=== PATIENT | male | born 1945 | race Caucasian/White ===

== ENCOUNTER 2020-05-17 07:45 | Outpatient (CLI) | payer MEDICARE, SELFPAY ==
[2020-05-17 08:35] LABS: Alanine Aminotransferase 23 U/L (4-50); Albumin Level 3.9 g/dL (3.5-5.1); Alkaline Phosphatase 74 U/L (38-126); Anion Gap 11.3 mmol/L (7-16); Aspartate Amino Transferase 28 U/L (17-59); Bilirubin,Total 0.6 mg/dL (0.2-1.3); Blood Urea Nitrogen 17 mg/dL (9-20); Calcium 8.9 mg/dL (8.4-10.2); Carbon Dioxide 23 mmol/L (22-30); Chloride 106 mmol/L (98-107); Cholesterol 184 mg/dL (0-200); Estimated Glomerular Filt Rate > 60; Glucose 101 mg/dL (75-110); HDL Direct 39 mg/dL; Potassium 4.3 mmol/L (3.4-5.0); Sodium 136 mmol/L (137-145); Triglycerides 100 mg/dL (<150)
[2020-05-17 08:46] LABS: LDL Cholesterol Direct 117 mg/dL
[2020-05-17 09:06] LABS: Prostate Specific Antigen 1.1 ng/mL (< OR = 4.0)
== END 2020-05-17 07:46 | disposition home or self-care (01) ==
PROVIDERS: PCP Internal Medicine; Visit Provider Internal Medicine
DX: E78.2 Mixed hyperlipidemia (principal); I10 Essential (primary) hypertension; E03.9 Hypothyroidism, unspecified; Z12.5 Encounter for screening for malignant neoplasm of prostate; Z79.899 Other long term (current) drug therapy
CPT/HCPCS: 36415; 80053; 80061; 84153; 84443; G0103

== ENCOUNTER 2021-02-10 07:53 | Outpatient (CLI) | payer MEDICARE, SELFPAY ==
[2021-02-10 12:22] LABS: Hematocrit 32.4 % (42.0-52.0); Hemoglobin 9.4 g/dL (14.0-18.0)
[2021-02-10 12:39] LABS: Alanine Aminotransferase 21 U/L (4-50); Albumin Level 3.8 g/dL (3.5-5.1); Alkaline Phosphatase 97 U/L (38-126); Anion Gap 5 mmol/L (8-16); Aspartate Amino Transferase 29 U/L (17-59); Bilirubin,Total 0.4 mg/dL (0.2-1.3); Blood Urea Nitrogen 15 mg/dL (9-20); Calcium 9.1 mg/dL (8.4-10.2); Carbon Dioxide 26 mmol/L (22-30); Chloride 106 mmol/L (98-107); Cholesterol 158 mg/dL (0-200); Estimated Glomerular Filt Rate > 60; Glucose 100 mg/dL (75-110); HDL Direct 40 mg/dL; Potassium 4.4 mmol/L (3.4-5.0); Sodium 137 mmol/L (137-145); Triglycerides 94 mg/dL (<150)
[2021-02-10 12:49] LABS: LDL Cholesterol Direct 101 mg/dL
== END 2021-02-10 07:54 | disposition home or self-care (01) ==
PROVIDERS: PCP Internal Medicine; Visit Provider Internal Medicine
DX: E78.2 Mixed hyperlipidemia (principal); I10 Essential (primary) hypertension; Z12.5 Encounter for screening for malignant neoplasm of prostate; E03.9 Hypothyroidism, unspecified; D64.9 Anemia, unspecified
CPT/HCPCS: 36415; 80053; 80061; 84153; 84443; 85014; 85018; G0103

== ENCOUNTER 2021-02-11 08:36 | Outpatient (CLI) | payer MEDICARE, SELFPAY ==
[2021-02-11 12:31] LABS: Iron 19 ug/dL (49-181)
[2021-02-11 12:41] LABS: Percent Iron Saturation 5 % (20-50)
[2021-02-11 13:09] LABS: Ferritin 6.69 ng/mL (11.1-264)
[2021-02-11 20:01] LABS: Folic Acid > 20.0 ng/mL (2.76->20)
== END 2021-02-11 08:37 | disposition home or self-care (01) ==
PROVIDERS: PCP Internal Medicine; Visit Provider Nurse Practitioner
DX: D64.9 Anemia, unspecified (principal)
CPT/HCPCS: 36415; 82607; 82728; 82746; 83540; 83550

== ENCOUNTER 2021-08-12 08:16 | Outpatient (CLI) | payer MEDICARE, SELFPAY ==
[2021-08-12 08:33] LABS: Hematocrit 45.7 % (42.0-52.0); Hemoglobin 15.9 g/dL (14.0-18.0); Mean Corpuscular HGB Conc 34.8 g/dl (32-36); Mean Corpuscular Hemoglobin 33.7 pg (26-34); Mean Corpuscular Volume 96.8 fl (80-100); Platelet Count Result 209 k/mm3 (150-375); Red Blood Count 4.72 M/mm3 (4.6-6.20); Red Cell Distribution Width 12.9 % (11.5-14.5); White Blood Count 5.9 K/mm3 (4.5-10.0)
[2021-08-12 08:50] LABS: Alanine Aminotransferase 34 U/L (4-50); Alkaline Phosphatase 85 U/L (38-126); Anion Gap 7 mmol/L (8-16); Aspartate Amino Transferase 31 U/L (17-59); Bilirubin,Total 0.5 mg/dL (0.2-1.3); Blood Urea Nitrogen 16 mg/dL (9-20); Calcium 9.3 mg/dL (8.4-10.2); Carbon Dioxide 26 mmol/L (22-30); Chloride 105 mmol/L (98-107); Cholesterol 168 mg/dL (0-200); Estimated Glomerular Filt Rate > 60; Glucose 104 mg/dL (65-110); HDL Direct 38 mg/dL; Potassium 4.6 mmol/L (3.4-5.0); Sodium 138 mmol/L (137-145); Triglycerides 84 mg/dL (<150)
[2021-08-12 09:01] LABS: LDL Cholesterol Direct 102 mg/dL
[2021-08-12 09:03] LABS: Iron 72 ug/dL (49-181)
[2021-08-12 09:12] LABS: Percent Iron Saturation 23 % (20-50)
== END 2021-08-12 08:17 | disposition home or self-care (01) ==
PROVIDERS: PCP Internal Medicine; Visit Provider Nurse Practitioner
DX: D50.9 Iron deficiency anemia, unspecified (principal); E78.5 Hyperlipidemia, unspecified
CPT/HCPCS: 36415; 80053; 80061; 83540; 83550; 85027

== ENCOUNTER 2021-09-22 19:40 | Inpatient (IN) | payer MEDICARE, SELFPAY ==
[2021-09-22] VITALS (9 sets, daily range): BP systolic 109–151; BP diastolic 63–95; PULSE 88–152; RESP 16–100; TEMP 36.7; O2SAT 13–100
--- NOTE | ~2021-09-22 | XR_ITS ---
EXAMINATION: XR chest 1V portable EXAM DATE: 09/22/2021 20:20 INDICATION: Palpitations/ in a-fib today hx cardiac stents , HTN. TECHNIQUE: Portable AP frontal chest x-ray was obtained. Comparison is made to prior examination from 2007. FINDINGS: Linear left basilar subsegmental atelectasis. The lungs are otherwise clear. There are no pleural effusions. The cardiomediastinal silhouette is within normal limits. There is no pneumothor ax suspected. The bones and soft tissues are unremarkable. There is moderate sliding gastroesophage al hiatal hernia. IMPRESSION: Linear left basilar subsegmental atelectasis. Reviewed, dictated and finalized at location A. HOE OPERATOR
--- NOTE | 2021-09-22 19:51 | ECG_ITS ---
Measurements Intervals [place] Rate: 138 P: HI: 0 QRS: -5 QRSD: 107 T: -1 QT: 278 QTc: 421 Interpretive Statements ATRIAL FLUTTER/TACHYCARDIA WITH RAPID VENTRICULAR RESPONSE INCOMPLETE RIGHT BUNDLE BRANCH BLOCK BORDERLINE R WAVE PROGRESSION, ANTERIOR LEADS BORDERLINE T WAVE ABNORMALITY- INFERIOR LEADS ABNORMAL ECG Electronically Signed On 09-22-2021 20:07:49 MICRO PALEONTOLOGIST by Bautista Mahan D.O.
[2021-09-22] MEDS: dilTIAZem HCl INJ 25 MG/5 ML VIAL 15 MG IV PUSH (20:11)
[2021-09-22 20:22] LABS: Basophils Percent Auto 0.5 % (0.2-1.2); Eosinophils Absolute Auto 0.2 K/mm3 (0-0.3); Hematocrit 45.5 % (42.0-52.0); Hemoglobin 16.4 g/dL (14.0-18.0); Immature Granulocyte Absolute 0.02 K/mm3 (0.00-0.031); Immature Granulocyte Percent A 0.3 % (0-0.5); Lymphocytes Absolute Auto 2.73 K/mm3 (0.9-3.2); Lymphocytes Percent Auto 34.3 % (18.3-44.2); Mean Corpuscular Hemoglobin 33.5 pg (26-34); Mean Corpuscular Volume 92.9 fl (80-100); Mean Platelet Volume 10.6 fl (7.4-10.4); Monocytes Absolute Auto 0.8 K/mm3 (0.1-0.6); Monocytes Percent Auto 10.4 % (2.6-8.5); Neutrophils Absolute Auto 4.1 K/mm3 (1.3-6.7); Neutrophils Percent Auto 51.5 % (45.5-73.1); Platelet Count Result 235 k/mm3 (150-375); Red Cell Distribution Width 12.1 % (11.5-14.5)
[2021-09-22 20:38] LABS: Partial Thromboplastin Time 33.2 SECONDS (22.3-36.8); Prothrombin Time 13.5 Seconds (11.1-14.7)
[2021-09-22 20:41] LABS: Alanine Aminotransferase 39 U/L (4-50); Albumin Level 4.1 g/dL (3.5-5.1); Alkaline Phosphatase 99 U/L (38-126); Anion Gap 8 mmol/L (8-16); Aspartate Amino Transferase 45 U/L (17-59); Bilirubin,Total 0.5 mg/dL (0.2-1.3); Blood Urea Nitrogen 19 mg/dL (9-20); Calcium 9.3 mg/dL (8.4-10.2); Carbon Dioxide 23 mmol/L (22-30); Chloride 104 mmol/L (98-107); Estimated CRCL calculation 94 ml/min; Estimated Glomerular Filt Rate > 60; Glucose 101 mg/dL (65-110); Lipase 40 U/L (23-300); Potassium 4.3 mmol/L (3.4-5.0); Sodium 135 mmol/L (137-145)
[2021-09-22 20:50] LABS: Troponin I < 0.012 ng/mL (0.000-0.034)
--- NOTE | 2021-09-22 23:26 | ED.CHESTPAIN ---
HPI - Chest Pain General Chief Complaint: Chest Pain Stated Complaint: Abnormal EKG Time Seen by Provider: 09/22/21 19:57 Source: patient Mode of arrival: ambulatory Limitations: no limitations History of Present Illness HPI narrative: 75-year-old with a history of hypertension, CAD here with complaints of palpitations since this afternoon. Patient states that he has been cleaning his house this afternoon and it was having some chest discomfort with some fluttering sensation in his chest. He denies any shortness of breath, nausea or vomiting. Patient states that he went to urgent care and was found to have a high heart rate and was later referred here to the ER. He denies having atrial fibrillation in the past. MD complaint: chest discomfort Pertinent past history: coronary artery disease Onset (ago): hour(s) (4) Timing of current episode: constant Prior episodes: No Onset: during exertion Pain location: left chest Pain radiation: none Relieving factors: nothing Exacerbating factors: nothing Related Data Home Medications Medication Instructions Recorded Confirmed aspirin 81 mg chewable tablet 81 mg PO DAILY 07/10/20 08/19/21 cholecalciferol (vitamin D3) 50 50 mcg PO DAILY 07/10/20 08/19/21 mcg (2,000 unit) capsule coenzyme Q10 10 mg capsule 10 mg PO ONCE 07/10/20 08/19/21 glucosamine-chondroitin 250 mg-200 2 tablet PO TID 07/10/20 08/19/21 mg tablet omega-3 fatty acids 1,000 mg 1,000 mg PO DAILY 07/10/20 08/19/21 capsule turmeric 400 mg capsule mg PO 07/10/20 08/19/21 Allergies Allergy/AdvReac Type Severity Reaction Status Date / Time No Known Allergies Allergy Verified 09/22/21 20:11 Review of Systems Review of Systems: All systems reviewed & are unremarkable except as noted in HPI and below Constitutional: Constitutional: Reports no additional constitutional complaints Eyes: Eyes: Reports no additional eye complaints ENT: Reports system reviewed and no additional complaints, except as documented Cardiovascular: Cardiovascular: Reports as per HPI Respiratory: Respiratory: Reports no additional respiratory complaints Gastrointestinal: Gastrointestinal: Reports no additional gastrointestinal complaints Genitourinary: Genitourinary: Reports no additional male genitourinary complaints Musculoskeletal: Musculoskeletal: Reports no additional musculoskeletal complaints Integumentary/Breasts: Skin/Breast: Reports system reviewed and no additional complaints, except as docu PMFSH Past Medical History Medical History Acute non-recurrent maxillary sinusitis Arteriosclerotic heart disease (ASHD) Disorder of the skin and subcutaneous tissue, unspecified Essential (primary) hypertension Hypothyroidism, unspecified Iron deficiency anemia, unspecified Mixed hyperlipidemia Obstructive sleep apnea (adult) (pediatric) Osteoarthritis of left knee Pain of left scapula Rib pain on left side Unspecified atrial fibrillation Family History Family History Mother Family history of cardiovascular disease Family history of heart disease in male family member before age 55 Father Family history of cardiovascular disease Cerebrovascular accident Social History Social History Alcohol intake: current Alcohol use details: social Substance use: never Substance use type: does not use Exam Narrative: GENERAL: Well-appearing, well-nourished, and in no acute distress. HEAD: Normocephalic, atraumatic. EYES: PERRLA and EOMI. NECK: Supple. CHEST: Clear to auscultation. No respiratory distress. HEART: Irregularly irregular and tachycardic. ABDOMEN: Soft, nontender, nondistended, normal active bowel sounds. EXTREMITIES: Normal range of motion. No edema. SKIN: Warm, dry, no rash. NEURO: No focal deficits. Alert and oriented x3. PSYCH: Normal mo
[2021-09-22] MEDS: ENOXAPARIN 120 MG/0.8 ML SYRINGE SUB-Q (23:30)
[2021-09-23] VITALS (18 sets, daily range): BP systolic 101–144; BP diastolic 63–86; PULSE 55–100; RESP 12–20; TEMP 36.5–37.2; O2SAT 92–100; BMI 33.7
--- NOTE | 2021-09-23 | ECHO_ITS ---
Patient Info Name: Yoni Hewitt Age: 75 years : 1945 Gender: Male Ht: 72 in Wt: 264 lbs BSA: 2.51 m2 HR: 57 bpm BP: 129 / 67 mmHg Heart Rhythm: Sinus Rhythm Technical Quality: Poor Exam Date: 09/23/2021 8:50 AM Exam Location: [facility] Patient Status: Inpatient Admit Date: 09/22/2021 Staff Ordering Physician: Vince Woodall MD Glove Operator: Eugenie Lynch RDCS Attending Provider: Riddhi Portillo DO Exam Type: CA echo dop color flow w con Study Info Indications I48.0 - Paroxysmal atrial fibrillation Complete two-dimensional, color flow and Doppler transthoracic echocardiogram is performed with contrast to opacify the left ventricle and to improve the deliniation of the left ventricle endocardial borders. Contrast/Agitated Saline Contrast/Ag. Saline: Definity Amount: 1.00 ml Administered By: Marc Zhou RN Existing IV Access: Yes IV Access Condition: patent with no signs of infiltration Reason for Poor Study: patient body habitus Summary 1. The transthoracic echocardiogram is normal by two-dimensional, color flow imaging, and Doppler interrogation. 2. Technically difficult study with limited views. 3. Technically difficult study. Echo contrast was used. LV size is at upper limits of normal, mild LVH, normal global LV systolic function, ejection fraction about 60%. Normal diastolic function. Mild left atrial enlargement. Mild thickening of mitral valve leaflets, no significant MR. Mildly calcified aortic valve leaflets, no significant stenosis by Doppler. Maximum velocity 1.4 m/sec, mean gradient 4 mmHg. Trivial TR, RVSP 30 mmHg. Mild calcification of aortic root. Sinus rhythm. Left Ventricle Left ventricular chamber dimension is normal. Left ventricular systolic function is normal, estimated at 60-65%. There is mildly increased left ventricular wall thickness. Right Ventricle Right ventricular chamber dimension is normal. Right ventricular systolic function is normal. Left Atria Left atrial chamber dimension is mildly enlarged. Right Atria Right atrial chamber dimension is normal. Aortic Valve There is mild aortic valve calcification. Pulmonic Valve The pulmonic valve is normal. Mitral Valve The mitral valve has thickened leaflets. There is trace mitral valve regurgitation. Tricuspid Valve The tricuspid valve leaflets are normal. There is trace tricuspid valve regurgitation. Pericardium/Pleural The pericardium appears normal. Inferior Vena Cava Normal inferior vena cava with >50% collapse upon inspiration consistent with normal right atrial pressure, 10 mmHg. Left Ventricular Outflow Tract Name Value Normal LVOT 2D LVOT Diameter 1.98 cm LVOT Doppler LVOT Peak Gradient 6 mmHg LVOT Mean Gradient 3 mmHg LVOT VTI 28.18 cm LVOT VTI/AV VTI Ratio 0.94 LVOT Stroke Volume 87.06 ml LVOT CO 5.40 l/min LVOT CI
[2021-09-23 00:54] LABS: Troponin I < 0.012 ng/mL (0.000-0.034)
--- NOTE | 2021-09-23 01:03 | ECG_ITS ---
Measurements Intervals [place] Rate: 71 P: 32 AK: 177 QRS: 32 QRSD: 124 T: 52 QT: 386 QTc: 422 Interpretive Statements SINUS RHYTHM INCOMPLETE RIGHT BUNDLE BRANCH BLOCK DELAYED PRECORDIAL R/S TRANSITION BASELINE ARTIFACT- I, II, III, AVR, AVL, V3-V6 BORDERLINE ECG Electronically Signed On 09-23-2021 5:22:59 CONTACT WORKER by Bautista Mahan D.O.
--- NOTE | 2021-09-23 04:50 | ADMGEN ---
This patient, Yoni Hewitt, was admitted to IMU Room 210-01. Patient/family oriented to hospital policies and general routines including ID bracelet, bed and alarms, visiting hours, pain management, procedures, bathroom and other care routines, personal items, smoking policy, room service/diet, and visiting hours. Information on how to activate the Rapid Response Team has been discussed. Patient/Family are encouraged to report perceived risks to care and to ask questions if they do not understand what they are told or what they should do.
[2021-09-23 05:55] LABS: Troponin I 0.013 ng/mL (0.000-0.034)
--- NOTE | 2021-09-23 08:10 | PM.IMHP ---
H&P: HPI History of Present Illness Date/Time: 09/23/21 05:50 Chief Complaint: Fast heart rate Narrative: 75-year-old male with a past medical history of coronary artery disease and paroxysmal atrial fibrillation (although he does deny history of AFib) who presented to the ER with fast heart rate. On arrival to the ER the patient was found to be in AFib RVR with a heart rate as high as the 150s. He reports that he was doing some routine house cleaning when he began feeling his heart race. He checked his pulse on his home pulse ox and his pulse was bouncing all over the place. He denied having a prior history of atrial fibrillation. However on my review of the patient's chart he has had multiple episodes of AFib in the past but is not on chronic anticoagulation due to history of prior GI bleeds from duodenitis and esophagitis associated with a hiatal hernia. He does have a history of coronary artery disease but has not had any associated chest pain with his episodes of AFib. He reported that he had an uncomfortable sensation in his chest but no true pain. He denies any associated nausea, lower extremity swelling, orthopnea or paroxysmal nocturnal dyspnea. He does drink 4 cups of caffeinated coffee a day. He denies any [id number] supplement use. He reports that he has been getting the same amount of sleep that he always gets. He denies any unusual stressors. A couple of hours after admission the patient had converted back to sinus rhythm. He reports that he converted back when he was startled by a loud noise in the ER. He does have coronary artery disease but is not been on dual anti-platelet medications since 2016. His last cardiac catheterization was in 2016 and demonstrated patent LAD, circ and RCA stents. He did have moderate amount of 50% is stenosis in a portion of the RCA. He just recently followed up with Dr. Olivares last week. He reports that he quit eating sugar about 6 week ago. Since that time he has lost at least 12 lb. He reports that he feels better than he has in years. Review of Systems Review of Systems: 12 systems were reviewed with pertinent positives and negatives per HPI. Except as documented in the HPI, all other systems were reviewed and are negative. [facility] Past Medical History Medical History (Updated 09/23/21 @ 08:38 by Riddhi Portillo DO) Arteriosclerotic heart disease (ASHD) Most recent stress tests 02/23/2020 BPH (benign prostatic hyperplasia) Disorder of the skin and subcutaneous tissue, unspecified Essential (primary) hypertension Hiatal hernia History of GI bleed Multiple times the past Hypothyroidism, unspecified Iron deficiency anemia, unspecified Left ventricular systolic dysfunction Mild left ventricular systolic dysfunction noted on cardiac catheterization January 2016 without history of heart failure Mixed hyperlipidemia Obstructive sleep apnea Osteoarthritis of left knee Paroxysmal atrial fibrillation Surgical History Surgical History (Updated 09/23/21 @ 08:38 by Riddhi Portillo DO) History of cardiac catheterization (2015) Most recent catheterization: LAD with previous stent material remains widely patent, circumflex mild luminal irregularities but no high-grade lesions previous stent material in the ramus as well as the trunk of the circ and obtuse marginal with no significant disease, right coronary artery with stent material midportion RCA which is nicely patent proximal to the stent is about 50% stenosis but is not flow limiting History of esophagogastroduodenoscopy (EGD) (2018) Demonstrated hiatal hernia, paraesophageal hernia, gastritis and duodenitis History of heart artery stent (2007) X5 Family History Family History Mother Family history of cardiovascular disease Family history of heart disease in male family member before age 55 Father Family history of cardiovascular disease Cerebrovascular accident
--- NOTE | 2021-09-23 08:33 | PM.CNCAR ---
Assessment and Plan Assessment and plan (1) Atrial fibrillation with rapid ventricular response: Code(s): I48.91 - Unspecified atrial fibrillation Status: Acute Assessment and Plan: 75-year-old male with CAD with history of multivessel PCI/stenting in all major epicardial vessels (performed at outside hospital, intervention report not available); PAF (based on Holter monitor report from 08/27/2016), hypertension. Patient presented to [facility] on 09/22/2021 with 1 day history of palpitations, found to be in atrial fibrillation with RVR. Was initiated on IV diltiazem in the emergency room with spontaneous confucianist of sinus rhythm. Bedside echocardiogram on preliminary assessment shows preserved LV systolic function. On telemetry, patient is currently in sinus bradycardia with heart rates in late 50s. Symptoms of palpitations have resolved. -based on patient's CHADSVASc score, anticoagulation is recommended for CVA prophylaxis. Patient gives history of episodes of GI bleed which resolved without recurrence. His current hemoglobin is within normal limits. Patient will be initiated on apixaban 5 mg p.o. b.i.d. along with PPI with close monitoring for any recurrent bleeding. He may need to be considered for left atrial appendage occlusion in the event of any contraindication for chronic anticoagulation. - start low-dose beta-enma at discharge. -follow-up with Dr. Olivares in the outpatient cardiology clinic. (2) CAD (coronary artery disease): Code(s): I25.10 - Atherosclerotic heart disease of [place] coronary artery without angina pectoris Status: Acute Assessment and Plan: Patient has history of multiple PCI/stent placements. He has not had any recent angina. Troponins on this admission on negative. EKG does not show any acute ST segment abnormality. -continue low-dose enteric-coated aspirin. Add statin. -outpatient follow-up. History of Present Illness History of Present Illness Consult date/time: 09/23/21 08:33 DATE OF CONSULT: 09/23/2021 REASON FOR CONSULT: AFib with RVR REQUESTING PHYSICIAN:Vince Woodall MD CHIEF COMPLAINT: Palpitations HPI: 75-year-old male with CAD with history of multivessel PCI/stenting in all major epicardial vessels (performed at outside hospital, intervention report not available); PAF (based on Holter monitor report from 08/27/2016), hypertension. Patient presented to [facility] Emergency Room on 04/22/2021 with complaints of palpitations. He initially presented to urgent care where he was found to have elevated heart rates and was advised to go to the ER. His symptoms started yesterday, and were associated with mild chest pressure. At baseline, patient states that he has good functional capacity without any significant limitations. He has history of multiple PCI/stent placements and has not had any angina in recent years. He gives history of couple of episodes of GI bleed, which recurrent patient resolved without any recurrence. Patient was found to be in atrial fibrillation upon arrival. EKG at presentation which I personally evaluated showed atrial fibrillation with RVR, ventricular rate 130 beats per minute, incomplete right bundle-branch block. He was initiated on IV diltiazem in the emergency room with spontaneous confucianist of sinus rhythm. Subsequent EKG showed sinus rhythm. Serial troponins are negative. TSH within normal limits. Review of patient's old medical indicate that he had 48 hour Holter monitor on 08/27/2016 which showed intermittent sinus rhythm and atrial fibrillation. Remote treadmill exercise stress test from 08/09/2001 reportedly showed decreased exercise performance with 7 Mets, hypertensive blood pressure response with no ischemic changes on EKG. Cardiac catheterization from 01/30/[address] Olivares reportedly showed patent stents in the LAD, LCX, ramus and RCA with about 50% stenosis in the mid RCA. Patient was managed
[2021-09-23] MEDS: PERFLUTREN LIPID MICROSPHERES 1.5 ML VIAL DILUTED TO 10 ML TOTAL VOLUME IV PUSH (09:42)
[2021-09-23] MEDS: LEVOTHYROXINE SODIUM 100 MCG TABLET PO (10:23)
[2021-09-23] MEDS: ATORVASTATIN 40 MG TABLET PO (10:23)
[2021-09-23] MEDS: PANTOPRAZOLE 40 MG TABLET PO (10:23)
[2021-09-23] MEDS: OMEGA 3 POLYUNSAT FATTY ACIDS 1 GM CAP PO (10:23)
[2021-09-23] MEDS: APIXABAN 5 MG TABLET PO ×2 (10:23→20:57)
[2021-09-23] MEDS: VALSARTAN 160 MG TABLET 320 MG PO (10:23)
[2021-09-23] MEDS: ASPIRIN 81 MG ENTERIC TABLET PO (10:24)
--- NOTE | 2021-09-23 14:56 | PM.IMPN ---
Progress Note: A&P Assessment and Plan (1) Atrial fibrillation with rapid ventricular response: Code(s): I48.91 - Unspecified atrial fibrillation Status: Acute Assessment and Plan: Patient has a history of paroxysmal AFib. He has already converted back into sinus rhythm. The patient's chads Vasc score is 4. However he has not been on chronic anticoagulation due to prior history of GI bleeds. His hemoglobin is currently normal. Will defer whether to initiate chronic anticoagulation to Cardiology. He is not on any rate or rhythm medications at home. Subjective Date/time seen: 09/23/21 14:56 Interval history: I agree with current assessment and plan. Will continue to monitor. Objective Data Vital Signs Vital Signs: Vital Signs - 24 hr 09/22/21 19:45 09/22/21 20:00 09/22/21 20:05 Temperature 36.7 C Pulse Rate 116 H 152 H 152 H Respiratory Rate 18 18 Blood Pressure 128/85 114/75 Pulse Oximetry 100 99 09/22/21 20:22 09/22/21 21:06 09/22/21 21:55 Temperature Pulse Rate 88 122 H 121 H Respiratory Rate 16 19 16 Blood Pressure 109/63 124/82 121/76 Pulse Oximetry 97 100 96 09/22/21 22:53 09/22/21 23:02 09/22/21 23:30 Temperature Pulse Rate 98 105 H 101 H Respiratory Rate 17 18 100 H Blood Pressure 125/95 H 151/87 H Pulse Oximetry 98 100 13 L 09/23/21 00:47 09/23/21 01:10 09/23/21 01:16 Temperature Pulse Rate 100 67 66 Respiratory Rate 12 15 14 Blood Pressure 101/63 126/80 127/72 Pulse Oximetry 99 99 92 09/23/21 03:44 09/23/21 04:43 09/23/21 04:57 Temperature Pulse Rate 69 79 65 Respiratory Rate 17 19 Blood Pressure 116/86 125/80 Pulse Oximetry 100 98 09/23/21 05:00 09/23/21 06:00 09/23/21 08:00 Temperature 36.6 C Pulse Rate 55 L 61 64 Respiratory Rate 20 Blood Pressure 129/67 Pulse Oximetry 100 09/23/21 08:41 09/23/21 10:00 09/23/21 11:59 Temperature 36.5 C 37.1 C Pulse Rate 66 65 58 L Respiratory Rate 18 20 Blood Pressure 144/71 H 134/78 Pulse Oximetry 97 99 09/23/21 12:00 Temperature Pulse Rate 63 Respiratory Rate Blood Pressure Pulse Oximetry Intake/Output Intake/Output: Intake & Output 09/20/21 09/21/21 09/22/21 09/23/21 23:59 23:59 23:59 23:59 Intake Total 486 Output Total 350 Balance 136 Meds/Results Medications: Active Medications Generic Name Dose Route Start Last Admin Trade Name Freq PRN Reason Stop Dose Admin Acetaminophen 650 mg 09/22/21 22:56 Acetaminophen 325 Mg Tablet PO Q4H PRN Mild Pain (1-3) or Fever Apixaban 5 mg 09/23/21 09:10 09/23/21 10:23 Apixaban 5 Mg Tablet PO 5 mg Q12HR RANJAN Administration Aspirin 81 mg 09/23/21 09:15 09/23/21 10:24 Aspirin 81 Mg Enteric Tablet PO 81 mg QAM RANJAN Administration Atorvastatin Calcium 40 mg 09/23/21 09:25 09/23/21 10:23 Atorvastatin 40 Mg Tablet PO 40 mg DAILY RANJAN Administration Fish Oil 1 gm 09/23/21 09:00 09/23/21 10:23 [place] 3 Polyunsat Fatty Acids 1 Gm Cap PO 1 gm DAILY RANJAN Administration Levothyroxine Sodium 100 mcg 09/23/21 08:40 09/23/21 10:23 Levothyroxine Sodium 100 Mcg Tablet PO 100 mcg DAILY@0630 RANJAN Administration Metoprolol Tartrate 25 mg 09/23/21 09:25 09/23/21 10:22 Metoprolol Tartrate 25 Mg Tablet PO Not Given Q12HR [facility] Miscellaneous Information 1 each 09/23/21 00:01 Calcium W/Vit D W/Vit K Is Nonform- Ok To Change To Calcium 500 Mg W/Vit D XX 10/23/21 00:00 CLARIFY [facility] Non-Formulary Medication 1 tablet 09/23/21 09:00 Calcium-Vitamin D3-Vitamin K PO 10/23/21 08:59 DAILY RANJAN Ondansetron HCl 4 mg 09/22/21 22:56 Ondansetron Inj 4 Mg/2 Ml Vial IV PUSH Q4H PRN Nausea Pantoprazole Sodium 40 mg 09/23/21 09:25 09/23/21 10:23 Pantoprazole 40 Mg Tablet PO 40 mg QAM RANJAN Administration Tamsulosin HCl 0.4 mg 09/23/21 21:00 Tamsulosin Hcl 0.4 Mg Capsule PO HS [facility] V[place]
[2021-09-23] MEDS: METOPROLOL TARTRATE 25 MG TABLET PO (20:57)
[2021-09-23] MEDS: TAMSULOSIN HCL 0.4 MG CAPSULE PO (20:57)
[2021-09-24] VITALS: PULSE 55
[2021-09-24 04:00] VITALS: PULSE 57
[2021-09-24 05:02] VITALS: BP 135/85; PULSE 54; RESP 20; TEMP 36.6; O2SAT 98
[2021-09-24] MEDS: LEVOTHYROXINE SODIUM 100 MCG TABLET PO (05:15)
[2021-09-24 05:36] LABS: Hematocrit 43.8 % (42.0-52.0); Hemoglobin 15.3 g/dL (14.0-18.0); Mean Corpuscular HGB Conc 34.9 g/dl (32-36); Mean Corpuscular Hemoglobin 33.3 pg (26-34); Mean Corpuscular Volume 95.4 fl (80-100); Mean Platelet Volume 10.4 fl (7.4-10.4); Platelet Count Result 193 k/mm3 (150-375); Red Blood Count 4.59 M/mm3 (4.6-6.20); Red Cell Distribution Width 12.5 % (11.5-14.5); White Blood Count 5.9 K/mm3 (4.5-10.0)
[2021-09-24 05:53] LABS: Anion Gap 6 mmol/L (8-16); Blood Urea Nitrogen 17 mg/dL (9-20); Calcium 9.1 mg/dL (8.4-10.2); Carbon Dioxide 25 mmol/L (22-30); Chloride 105 mmol/L (98-107); Estimated CRCL calculation 82 ml/min; Estimated Glomerular Filt Rate > 60; Glucose 103 mg/dL (65-110); Potassium 4.2 mmol/L (3.4-5.0); Sodium 136 mmol/L (137-145)
[2021-09-24 08:00] VITALS: PULSE 72
[2021-09-24 08:30] VITALS: BP 137/82; PULSE 53; RESP 20; TEMP 36.6; O2SAT 99
[2021-09-24] MEDS: VALSARTAN 160 MG TABLET 320 MG PO (08:36)
[2021-09-24] MEDS: APIXABAN 5 MG TABLET PO (08:36)
[2021-09-24] MEDS: METOPROLOL TARTRATE 25 MG TABLET PO (08:36)
[2021-09-24] MEDS: ATORVASTATIN 40 MG TABLET PO (08:36)
[2021-09-24] MEDS: PANTOPRAZOLE 40 MG TABLET PO (08:37)
[2021-09-24] MEDS: OMEGA 3 POLYUNSAT FATTY ACIDS 1 GM CAP PO (08:37)
--- NOTE | 2021-09-24 09:20 | PM.DS ---
DS: Admitting Diagnosis Discharge Date 09/24/2021 Admitting Diagnosis Atrial fibrillation with rapid ventricular response DS: Discharge Diagnosis Discharge Diagnosis (1) Atrial fibrillation with rapid ventricular response: Code(s): I48.91 - Unspecified atrial fibrillation Status: Acute Assessment and Plan: Patient has a history of paroxysmal AFib Now in sinus rhythm Eliquis initiated per cardiology Hx of GI, hgb stable, PPI initiated DS: Summary Hospital Course Hospital Course: 75-year-old male with a past medical history of coronary artery disease and paroxysmal atrial fibrillation (although he does deny history of AFib) who presented to the ER with fast heart rate. On arrival to the ER the patient was found to be in AFib RVR with a heart rate as high as the 150s. He reported that he was doing some routine house cleaning when he began feeling his heart race. He checked his pulse on his home pulse ox and his pulse was bouncing all over the place. He denied having a prior history of atrial fibrillation. However on my review of the patient's chart he has had multiple episodes of AFib in the past but is not on chronic anticoagulation due to history of prior GI bleeds from duodenitis and esophagitis associated with a hiatal hernia. He does have a history of coronary artery disease but has not had any associated chest pain with his episodes of AFib. He reported that he had an uncomfortable sensation in his chest but no true pain. He denied any associated nausea, lower extremity swelling, orthopnea or episode of paroxysmal nocturnal dyspnea. He does drink 4 cups of caffeinated coffee a day. He denied any [id number]-vmopcyk supplement use. He reported that he has been getting the same amount of sleep that he always gets. He denied any unusual stressors. A couple of hours after admission the patient had converted back to sinus rhythm. He reported that he converted back when he was startled by a loud noise in the ER. He does have coronary artery disease but is not been on dual anti-platelet medications since 2016. His last cardiac catheterization was in 2016 and demonstrated patent LAD, circ and RCA stents. He did have moderate amount of 50% is stenosis in a portion of the RCA. He just recently followed up with Dr. Olivares last week. He reports that he quit eating sugar about 6 week ago. Since that time he has lost at least 12 lb. He reports that he feels better than he has in years. Cardiology was consulted and based on patient's CHADSVASc score, anticoagulation is recommended for CVA prophylaxis. Patient was initiated on apixaban 5 mg p.o. b.i.d. along with PPI with close monitoring for any recurrent bleeding. He may need to be considered for left atrial appendage occlusion in the event of any contraindication for chronic anticoagulation. Low dose beta-enma at discharge and follow-up with Dr. Olivares in the outpatient cardiology clinic. The patient is hemodynamically stable and will dishcarge home today. Status at Discharge Functional status at discharge: independent ambulation Overall status at discharge: patient is back to baseline Time Spent with Patient Time attestation: Total time spent providing and/or coordinating discharge services: Time spent: Greater than 30 minutes Exam Const: General: no acute distress, alert and awake Orientation/consciousness: patient oriented x3 HENMT: Head: normocephalic and atraumatic Ears: hearing grossly normal bilaterally and external ears normal Face and sinus: face symmetric Mouth: Yes Normal oral and palatal mucosa present Eyes: EOM: EOMs intact bilaterally Neck: Neck: full ROM, trachea midline and no JVD Resp: Effort & Inspection: normal respiratory effort Auscultation: clear to auscultation bilaterally Cardio: Jugular venous distension: no JVD Rate: regular rate Rhythm: regular rhythm Heart sounds: S1 normal heart sound present and S2 normal heart so
== END 2021-09-24 10:32 | disposition home or self-care (01) | DRG 310 ==
LOC: ANHED 23:34 → ANHIMU 09-23 01:17
PROVIDERS: Nurse Practitioner Adult Health; Admitting Provider Internal Medicine; Emergency Provider Family Medicine; PCP Internal Medicine; Visit Provider Internal Medicine
DX: I48.20 Chronic atrial fibrillation, unspecified (principal); I10 Essential (primary) hypertension; I25.10 Atherosclerotic heart disease of native coronary artery without angina pectoris; E03.9 Hypothyroidism, unspecified; D50.9 Iron deficiency anemia, unspecified; E78.2 Mixed hyperlipidemia; M17.12 Unilateral primary osteoarthritis, left knee; N40.0 Benign prostatic hyperplasia without lower urinary tract symptoms; G47.33 Obstructive sleep apnea (adult) (pediatric); E66.9 Obesity, unspecified; Z68.33 Body mass index [BMI] 33.0-33.9, adult; Z79.82 Long term (current) use of aspirin; Z95.5 Presence of coronary angioplasty implant and graft; Z87.891 Personal history of nicotine dependence; Z87.19 Personal history of other diseases of the digestive system
CPT/HCPCS: 36415; 71045; 80048; 80053; 83690; 84443; 84484; 85025; 85027; 85610; 85730; 93005; 93306; 96365; 96366; 99285; A9270; C8929; J1650; Q9957

== ENCOUNTER 2022-02-18 08:02 | Outpatient (CLI) | payer MEDICARE, SELFPAY ==
[2022-02-18 08:46] LABS: Alanine Aminotransferase 33 U/L (4-50); Alkaline Phosphatase 94 U/L (38-126); Anion Gap 6 mmol/L (8-16); Aspartate Amino Transferase 34 U/L (17-59); Bilirubin,Total 0.6 mg/dL (0.2-1.3); Blood Urea Nitrogen 20 mg/dL (9-20); Calcium 8.9 mg/dL (8.4-10.2); Carbon Dioxide 27 mmol/L (22-30); Chloride 103 mmol/L (98-107); Cholesterol 172 mg/dL (0-200); Estimated Glomerular Filt Rate > 60; Glucose 106 mg/dL (65-110); HDL Direct 43 mg/dL; Potassium 4.4 mmol/L (3.4-5.0); Sodium 136 mmol/L (137-145); Triglycerides 65 mg/dL (<150)
[2022-02-18 08:48] LABS: Hematocrit 47.2 % (42.0-52.0); Hemoglobin 15.9 g/dL (14.0-18.0)
[2022-02-18 08:58] LABS: LDL Cholesterol Direct 97 mg/dL
== END 2022-02-18 08:03 | disposition home or self-care (01) ==
LOC: ANHLAB 08:06
PROVIDERS: PCP Internal Medicine; Visit Provider Nurse Practitioner
DX: E78.5 Hyperlipidemia, unspecified (principal); E03.9 Hypothyroidism, unspecified; D64.9 Anemia, unspecified
CPT/HCPCS: 36415; 80053; 80061; 84443; 85014; 85018

== ENCOUNTER 2022-03-02 07:58 | Outpatient (CLI) | payer MEDICARE, SELFPAY | END 2022-03-02 07:59 | disposition home or self-care (01) | LOC: ANHLAB 08:00 | PROVIDERS: PCP Internal Medicine; Visit Provider Nurse Practitioner Family | DX: Z12.5 Encounter for screening for malignant neoplasm of prostate (principal) | CPT/HCPCS: 36415; 84153; G0103 ==

== ENCOUNTER 2022-08-31 08:06 | Outpatient (CLI) | payer MEDICARE, SELFPAY ==
[2022-08-31 11:48] LABS: Alanine Aminotransferase 43 U/L (6-50); Albumin Level 3.7 g/dL (3.5-5.1); Alkaline Phosphatase 107 U/L (38-126); Anion Gap 6 mmol/L (8-16); Aspartate Amino Transferase 45 U/L (17-59); Bilirubin,Total 0.8 mg/dL (0.2-1.3); Blood Urea Nitrogen 22 mg/dL (9-20); Calcium 8.4 mg/dL (8.4-10.2); Carbon Dioxide 29 mmol/L (22-30); Chloride 101 mmol/L (98-107); Cholesterol 142 mg/dL (0-200); Estimated Glomerular Filt Rate > 60; Glucose 88 mg/dL (65-110); HDL Direct 42 mg/dL; Sodium 136 mmol/L (137-145); Triglycerides 77 mg/dL (<150)
[2022-08-31 11:49] LABS: LDL Cholesterol Direct 78 mg/dL
[2022-08-31 12:27] LABS: Potassium 4.7 mmol/L (3.4-5.0)
== END 2022-08-31 08:07 | disposition home or self-care (01) ==
PROVIDERS: PCP Internal Medicine; Visit Provider Nurse Practitioner
DX: E78.2 Mixed hyperlipidemia (principal); Z12.5 Encounter for screening for malignant neoplasm of prostate; E03.9 Hypothyroidism, unspecified
CPT/HCPCS: 36415; 80053; 80061; 84153; 84443; G0103

== ENCOUNTER 2023-04-13 08:44 | Outpatient (CLI) | payer MEDICARE, SELFPAY ==
[2023-04-13 09:12] LABS: Basophils Percent Auto 0.3 % (0.2-1.2); Eosinophils Absolute Auto 0.2 K/mm3 (0-0.3); Eosinophils Percent Auto 2.8 % (0-4.4); Hematocrit 46.7 % (42.0-52.0); Hemoglobin 15.8 g/dL (14.0-18.0); Immature Granulocyte Absolute 0.01 K/mm3 (0.00-0.031); Immature Granulocyte Percent A 0.1 % (0-0.5); Lymphocytes Absolute Auto 2.14 K/mm3 (0.9-3.2); Lymphocytes Percent Auto 31.7 % (18.3-44.2); Mean Corpuscular HGB Conc 33.8 g/dl (32-36); Mean Corpuscular Hemoglobin 32.4 pg (26-34); Mean Corpuscular Volume 95.7 fl (80-100); Mean Platelet Volume 10.2 fl (7.4-10.4); Monocytes Absolute Auto 0.7 K/mm3 (0.1-0.6); Monocytes Percent Auto 10.5 % (2.6-8.5); Neutrophils Absolute Auto 3.7 K/mm3 (1.3-6.7); Neutrophils Percent Auto 54.6 % (45.5-73.1); Platelet Count Result 196 k/mm3 (150-375); Red Blood Count 4.88 M/mm3 (4.6-6.20); Red Cell Distribution Width 13.2 % (11.5-14.5); White Blood Count 6.8 K/mm3 (4.5-10.0)
[2023-04-13 10:00] LABS: Free T4 Free Thyroxine 0.96 ng/mL (0.78-2.19)
[2023-04-13 10:06] LABS: Alanine Aminotransferase 31 U/L (6-50); Albumin Level 3.9 g/dL (3.5-5.1); Alkaline Phosphatase 79 U/L (38-126); Anion Gap 5 mmol/L (8-16); Aspartate Amino Transferase 27 U/L (17-59); Bilirubin,Total 0.9 mg/dL (0.2-1.3); Blood Urea Nitrogen 28 mg/dL (9-20); Calcium 9.1 mg/dL (8.4-10.2); Carbon Dioxide 31 mmol/L (22-30); Chloride 104 mmol/L (98-107); Cholesterol 193 mg/dL (0-200); Estimated Glomerular Filt Rate > 60; Glucose 97 mg/dL (65-110); HDL Direct 39 mg/dL; Potassium 4.3 mmol/L (3.4-5.0); Sodium 140 mmol/L (137-145); Triglycerides 112 mg/dL (<150)
[2023-04-13 10:17] LABS: LDL Cholesterol Direct 122 mg/dL
== END 2023-04-13 08:45 | disposition home or self-care (01) ==
PROVIDERS: PCP Family Medicine; Visit Provider Nurse Practitioner Family
DX: E03.9 Hypothyroidism, unspecified (principal); Z13.0 Encounter for screening for diseases of the blood and blood-forming organs and certain disorders involving the immune mechanism; E78.2 Mixed hyperlipidemia; I11.9 Hypertensive heart disease without heart failure
CPT/HCPCS: 36415; 80053; 80061; 84439; 84443; 85025